=== PATIENT | female | born 1970 | race Caucasian/White ===

== ENCOUNTER 2018-11-22 09:56 | Emergency (ER) | payer OTHER ==
[~2018-11-22] VITALS: Ht 152.4 cm; Wt 67.6 kg
[~2018-11-22 09:56] MED LIST: AMBIEN10 MG; CLONAZEPAM0.5 MG; CYMBALTA30 MG; CYMBALTA60 MG; DOLOGEN CAPLET1 TAB; FLEXERIL10 MG; FOLIC ACID1 MG; METHOTREXA25 MG/ML; SULFAZINE500 MG; TOPROL XL25 M1; ZOLOFT50 MG
[2018-11-22] MEDS ORDERED: CABERGOLINE0.5 MG (10:08)
[2018-11-22] MEDS ORDERED: DELTASONE20 MG (10:08)
[2018-11-22] MEDS ORDERED: PRILOSEC10 MG (10:09)
[2018-11-22] MEDS ORDERED: ZANTAC150 M3 (10:09)
== END 2018-11-22 13:28 | disposition home or self-care (01) ==
LOC: ER 09:56
DX: K52.9 Noninfective gastroenteritis and colitis, unspecified (principal)

== ENCOUNTER 2019-01-06 08:19 | Outpatient (CLI) | payer OTHER ==
[~2019-01-06 08:19] MED LIST changes: +CABERGOLINE0.5 MG; +DELTASONE20 MG; +PRILOSEC10 MG; +ZANTAC150 M3
== END 2019-01-06 08:28 | disposition home or self-care (01) ==
LOC: RX STUDY 08:19
DX: R10.31 Right lower quadrant pain (principal); R10.32 Left lower quadrant pain

== ENCOUNTER 2019-06-14 09:15 | Inpatient (IN) | payer OTHER ==
[~2019-06-14] VITALS: Ht 152.4 cm; Wt 68.0 kg
[2019-06-14] MEDS ORDERED: VOLTAREN100 GM (11:42)
[2019-06-14] MEDS ORDERED: TRAMADOL HCL50 MG PO (11:43)
[2019-06-14] MEDS ORDERED: TORADOL60 MG IM (11:43)
[2019-06-14] MEDS ORDERED: NORFLEX PO (11:43)
[2019-06-19] MEDS ORDERED: NORFLEX100MG (08:03)
[2019-06-19] MEDS ORDERED: CLONAZEPAM1 MG PO (08:10)
== END 2019-06-22 12:21 | disposition home or self-care (01) | DRG 743 ==
LOC: ADM 09:15 → OB/GYN 06-19 05:55 → O/R 06-19 05:55 → CIR.AMB 06-19 09:15 → OB/GYN 06-19 09:15 → EDSTATUS 06-19 09:15 → OB/GYN 06-19 13:28
PROVIDERS: ADMIT Obstetrics & Gynecology
PROC: 0UT50ZZ Resection of Right Fallopian Tube, Open Approach (ICD-10-PCS; principal; 2019-06-19 15:45)
PROC: 0UT00ZZ Resection of Right Ovary, Open Approach (ICD-10-PCS; 2019-06-19 15:45)
DX: N83.11 Corpus luteum cyst of right ovary (principal); D27.1 Benign neoplasm of left ovary; R10.2 Pelvic and perineal pain; K66.0 Peritoneal adhesions (postprocedural) (postinfection)

== ENCOUNTER 2019-07-20 14:12 | Emergency (ER) | payer OTHER ==
[~2019-07-20] VITALS: Ht 152.4 cm; Wt 67.1 kg
[~2019-07-20 14:12] MED LIST changes: +CLONAZEPAM1 MG PO; +NORFLEX PO; +NORFLEX100MG; +TORADOL60 MG IM; +TRAMADOL HCL50 MG PO; +VOLTAREN100 GM
== END 2019-07-20 20:00 | disposition home or self-care (01) ==
LOC: ER 14:12
DX: R10.13 Epigastric pain (principal)

== ENCOUNTER 2020-07-08 08:51 | Emergency (ER) | payer OTHER ==
[~2020-07-08] VITALS: Ht 152.4 cm; Wt 67.1 kg
[2020-07-08] MEDS ORDERED: CRESTOR10 MG (09:12)
== END 2020-07-08 18:49 | disposition home or self-care (01) ==
LOC: ER 08:51
DX: N94.89 Other specified conditions associated with female genital organs and menstrual cycle (principal); R10.11 Right upper quadrant pain; Z03.818 Encounter for observation for suspected exposure to other biological agents ruled out

== ENCOUNTER 2020-08-15 09:57 | Day surgery (SDC) | payer OTHER ==
[~2020-08-15 09:57] MED LIST changes: +CRESTOR10 MG; +DEXILANT60 MG PO
[2020-08-15] MEDS ORDERED: ULTRAM50 MG PO (13:15)
[2020-08-15] MEDS ORDERED: MIRALAX17 GM PO (13:15)
[2020-08-15] MEDS ORDERED: TYLENOL ARTHRI650 MG PO (13:15)
== END 2020-08-15 16:15 | disposition home or self-care (01) ==
LOC: CIR.AMB 09:57 → O/R 10:25 → CIR.AMB 10:25 → O/R 16:15
PROVIDERS: ATTEND Surgery
DX: K80.10 Calculus of gallbladder with chronic cholecystitis without obstruction (principal)